=== PATIENT | male | born 1960 | race Hispanic/Latino ===

== ENCOUNTER 2019-09-12 11:10 | Emergency (ER) | payer BC ==
[2019-09-12 11:37] VITALS: BP 138/84
--- NOTE | 2019-09-12 11:39 | Event Note ---
ED Screening Note Date of service: 09/12/19 Time: 11:35 ED Screening Note: This is a 59 y.o. M. that presents to the ER with abdominal pain for 4 days. History of bilateral inguinal hernia repair 2009. Reports pain in left groin radiating to back. This initial assessment/diagnostic orders/clinical plan/treatment(s) is/are subject to change based on patients health status, clinical progression and re- assessment by fellow clinical providers in the ED. Further treatment and workup at subsequent clinical providers discretion. Patient/guardian urged not to elope from the ED as their condition may be serious if not clinically assessed and managed. Initial orders include: Labs and CT of abdomen
--- NOTE | 2019-09-12 12:28 | Emergency Department Report ---
ED Abdominal Pain HPI - General Chief Complaint: Abdominal Pain Stated Complaint: SEVERE PAIN Time Seen by Provider: 09/12/19 11:35 Source: patient Mode of arrival: Ambulatory Limitations: No Limitations - History of Present Illness Initial Comments: This is a 59-year-old male that presents to the ER with abdominal pain for 4 days. History of bilateral inguinal hernia repair 2009. Reports pain in left lower quadrant radiating to back. Nights recent injury, urinary frequency, urgency, dysuria, fever, chills, nausea, vomiting, or diarrhea. MD Complaint: abdominal pain Onset/Timin -: days(s) Location: LLQ Radiation: L flank Migration to: no migration Severity: moderate Severity scale (0 -10): 4 Quality: aching Consistency: intermittent Improves With: nothing Worsens With: nothing Associated Symptoms: denies other symptoms - Related Data Allergies Allergy/AdvReac Type Severity Reaction Status Date / Time acetaminophen Allergy Nausea Verified 09/12/19 11:12 [From Tylenol-Codeine #3] bee venom protein (honey bee) Allergy Swelling Verified 09/12/19 11:12 codeine Allergy Nausea Verified 09/12/19 11:12 [From Tylenol-Codeine #3] ED Review of Systems ROS: Stated complaint: SEVERE PAIN Other details as noted in HPI Constitutional: denies: chills, fever Respiratory: denies: cough, shortness of breath, wheezing Cardiovascular: denies: chest pain, palpitations Gastrointestinal: abdominal pain (left lower quadrant ). denies: nausea, diarrhea Genitourinary: denies: urgency, dysuria Musculoskeletal: back pain. denies: joint swelling, arthralgia Skin: denies: rash, lesions Neurological: denies: headache, weakness, paresthesias Psychiatric: denies: anxiety, depression ED Past Medical Hx - Past Medical History Previous Medical History?: Yes Additional medical history: hernia. "hard of hearing". enlarged heart - Surgical History Past Surgical History?: Yes Additional Surgical History: hernia surgery - Social History Smoking Status: Current Every Day Smoker Substance Use Type: None ED Physical Exam - General Limitations: No Limitations General appearance: alert, in no apparent distress - Respiratory Respiratory exam: Present: normal lung sounds bilaterally. Absent: respiratory distress - Cardiovascular Cardiovascular Exam: Present: regular rate, normal rhythm. Absent: systolic mu rmur, diastolic murmur, rubs, gallop - GI/Abdominal GI/Abdominal exam: Present: soft, tenderness (left lower quadrant), normal bowel sounds. Absent: distended, guarding, rebound, rigid, organomegaly, pulsatile mass, hernia - Back Exam Back exam: Present: normal inspection, full ROM. Absent: CVA tenderness (R), CVA tenderness (L), rash noted - Neurological Exam Neurological exam: Present: alert, oriented X3, normal gait - Psychiatric Psychiatric exam: Present: normal affect, normal mood - Skin Skin exam: Present: warm, dry, intact, normal color. Absent: rash ED Course Vital Signs 09/12/19 11:35 Temperature 97.7 F Pulse Rate 92 H Respiratory 20 Rate Blood Pressure 138/84 O2 Sat by Pulse 96 Oximetry ED Medical Decision Making - Lab Data Result diagrams: 09/12/19 12:50 09/12/19 12:50 Lab Results 09/12/19 09/12/19 Range/Units 12:50 12:50 WBC 10.6 (4.5-11.0) K/mm3 RBC 5.62 H (3.65-5.03) M/mm3 Hgb 16.5 H (11.8-15.2) gm/dl Hct 49.6 H (35.5-45.6) % MCV 88 (84-94) fl MCH 29 (28-32) pg MCHC 33 (32-34) % RDW 14.1 (13.2-15.2) % Plt Count 301 (140-440) K/mm3 Lymph % (Auto) 15.9 (13.4-35.0) % Loving % (Auto) 8.7 H (0.0-7.3) % Eos % (Auto) 1.1 (0.0-4.3) % Baso % (Auto) 0.9 (0.0-1.8) % Lymph # 1.7 (1.2-5.4) K/mm3 Loving # 0.9 H (0.0-0.8) K/mm3 Eos # 0.1 (0.0-0.4) K/mm3 Baso # 0.1 (0.0-0.1) K/mm3 Seg Neutrophils % 73.4 H (40.0-70.0) % Seg Neutrophils # 7.8 H (1.8-7.7) K/mm3 Sodium 136 L (137-145) mmol/L Potassium 4.9 (3.6-5.0) mmol/L Chloride 100.3 (98-107) mmol/L Carbon Dioxide 20 L (22-30) mmol/L Anion Gap 21 mmol/L BUN 15 (9-20) mg/dL Creatinine 0.9 (0.8-1.5) mg/dL Estimated GFR > 60 ml/min BUN/Creatinine Ratio 17 % Glucose 106 H (75-100) mg/dL Calcium 9.3 (8.4-10.2) mg/dL Total Bilirubin 0.60 (0.1-1.2) mg/dL AST 17 (5-40) units/L ALT 15 (7-56) units/L Alkaline Phosphatase 64 (35-129) units/L Total Protein 7.1 (6.3-8.2) g/dL Albumin 3.9 (3.9-5) g/dL Albumin/Globulin Ratio 1.2 % - Radiology Data Radiology results: report reviewed CT ABDOMEN AND PELVIS WITH IV CONTRAST INDICATION: abdominal pain. COMPARISON: None available. TECHNIQUE: All CT scans at this facility use dose modulation, automated exposure control, iterative reconstruction or weight based dosing, when appropriate, to reduce radiation dose to as low as reasonably achievable. FINDINGS: Lung Bases: There is a 7 mm pleural-based noncalcified nodule in the right lung base on series 2 image 41. Skeletal System: No acute abnormality. ABDOMEN: Liver: No significant abnormality. Gallbladder: No significant abnormality. Bile Ducts: No significant abnormality. Pancreas: No significant abnormality. Spleen: No significant abnormality. Adrenals: No significant abnormality. 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 No hydronephrosis or intrinsic lesions. Upper GI tract: There is partial bowel rotation with small bowel in the right and: Normal left. No bowel obstruction is seen. Lymph Nodes: No significant adenopathy. Aorta: No significant abnormality. Additional Findings: There has been prior hernia repair. PELVIS: Colon: No acute abnormality. Urinary Bladder and Distal Ureters: No significant abnormality. Appendix: No significant abnormality. Lymph Nodes: No significant adenopathy. Additional Findings: None. IMPRESSION: 1. No acute process in the abdomen or pelvis. 2. Crossed fused renal ectopia. 3. 7 mm pleural-based noncalcified nodule in the right lung base. See below for follow-up recommendations. 4. Additional, incidental findings as above. INCIDENTAL PULMONARY NODULE RECOMMENDATIONS Solid Nodule size 6-8 mm -- Single - Low Risk Patient: CT at 6-12 months, then consider CT at 18-24 months - High Risk Patient: CT at 6-12 months, then CT at 18-24 months Note These recommendations do not apply to lung cancer screening, patients with immunosuppression, or patients with known primary cancer. Note Newly detected indeterminate nodule in persons 35 years of age or older. Persons under the age of 35 should not receive follow-up unless there is a known primary cancer. Low Risk Patient -- minimal or absent history of smoking and of other known risk factors. High Risk Patient -- history of smoking or of other known risk factors. Nodule dimensions are average of long and short axes, rounded to the nearest millimeter. - Medical Decision Making This is a 59-year-old male who presents to the emergency room with left inguinal pain radiating to left flank. Vitals are stable and patient in no acute distress. Workup: CBC, BMP, and CT of abdomen and pelvis. All labs are unre markable. CT findings of 1. No acute process in the abdomen or pelvis. 2. Crossed fused renal ectopia. 3. 7 mm pleural-based noncalcified nodule in the right lung base. There is low suspicion emergent causes of abdominal pain such as, but not limited to, appendicitis, abdominal aortic aneurysm, surgical biliary disease, pancreatitis, SBO, mesenteric ischemia, serious intra-abdominal bacterial illness, genital torsion. Patient tolerating by mouth. Will give instructions to have repeat CT of abdomen in 6 months. Patient will be discharged with strict return precautions and follow up with primary MD within 12-24 hours for further evaluation. Patient understands that this still may have an early presentation of an emergent medical condition such as appendicitis that will require a recheck. Critical care attestation.: If time is entered above; I have spent that time in minutes in the direct care of this critically ill patient, excluding procedure time. ED Disposition Clinical Impression: Lung nodule Abdominal pain Qualifiers: Abdominal location: left lower quadrant Qualified Code(s): R10.32 - Left lower quadrant pain Disposition: - TO HOME OR SELFCARE Is pt being admited?: No Condition: Stable Instructions: Pulmonary Nodules (ED), Abdominal Pain (ED) Additional Instructions: There is a nodule in your right lower lobe lung that will require repeat CT imaging in 6 months. I have provided a list of primary care doctors for you to follow up with and to order repeat imaging with. Turn to the emergency room if worsening symptoms. Referrals: SHIELA DEL TORO MD [Staff Physician] - 3-5 Days [facility] [Outside] - 3-5 Days [facility] [Outside] - 3-5 Days [facility] [Outside] - 3-5 Days Forms: Work/School Release Form(ED) Time of Disposition: 16:17
[2019-09-12 13:06] LABS: Basophils # (Auto) 0.1 K/mm3 (0.0-0.1); Basophils % (Auto) 0.9 % (0.0-1.8); Eosinophils # (Auto) 0.1 K/mm3 (0.0-0.4); Eosinophils % (Auto) 1.1 % (0.0-4.3); Hematocrit 49.6 % (35.5-45.6); Hemoglobin 16.5 gm/dl (11.8-15.2); Lymphocytes # (Auto) 1.7 K/mm3 (1.2-5.4); Lymphocytes % (Auto) 15.9 % (13.4-35.0); Mean Corpuscular HGB Conc 33 % (32-34); Mean Corpuscular Volume 88 fl (84-94); Monocytes # (Auto) 0.9 K/mm3 (0.0-0.8); Monocytes % (Auto) 8.7 % (0.0-7.3); Platelet Count 301 K/mm3 (140-440); Red Blood Count 5.62 M/mm3 (3.65-5.03); Red Cell Distribution Width 14.1 % (13.2-15.2)
[2019-09-12 13:31] LABS: Alanine Aminotransferase 15 units/L (7-56); Albumin 3.9 g/dL (3.9-5); BUN/Creatinine Ratio 17; Blood Urea Nitrogen 15 mg/dL (9-20); Calcium 9.3 mg/dL (8.4-10.2); Hemolysis Index 7
--- NOTE | 2019-09-12 15:58 | Cat Scan Report ---
CT ABDOMEN AND PELVIS WITH IV CONTRAST INDICATION: abdominal pain. COMPARISON: None available. TECHNIQUE: All CT scans at this facility use dose modulation, automated exposure control, iterative reconstructi on or weight based dosing, when appropriate, to reduce radiation dose to as low as reasonably achieva ble. FINDINGS: Lung Bases: There is a 7 mm pleural-based noncalcified nodule in the right lung base on series 2 imag e 41. Skeletal System: No acute abnormality. ABDOMEN: Liver: No significant abnormality. Gallbladder: No significant abnormality. Bile Ducts: No significant abnormality. Pancreas: No significant abnormality. Spleen: No significant abnormality. Adrenals: No significant abnormality. 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 No hyd ronephrosis or intrinsic lesions. Upper GI tract: There is partial bowel rotation with small bowel in the right and: Normal left. No martina wel obstruction is seen. Lymph Nodes: No significant adenopathy. Aorta: No significant abnormality. Additional Findings: There has been prior hernia repair. PELVIS: Colon: No acute abnormality. Urinary Bladder and Distal Ureters: No significant abnormality. Appendix: No significant abnormality. Lymph Nodes: No significant adenopathy. Additional Findings: None. IMPRESSION: 1. No acute process in the abdomen or pelvis. 2. Crossed fused renal ectopia. 3. 7 mm pleural-based noncalcified nodule in the right lung base. See below for follow-up recommendat ions. 4. Additional, incidental findings as above. INCIDENTAL PULMONARY NODULE RECOMMENDATIONS Solid Nodule size 6-8 mm -- Single - Low Risk Patient: CT at 6-12 months, then consider CT at 18-24 months - High Risk Patient: CT at 6-12 months, then CT at 18-24 months Note These recommendations do not apply to lung cancer screening, patients with immunosuppression, o r patients with known primary cancer. Note Newly detected indeterminate nodule in persons 35 years of age or older. Persons under the age of 35 should not receive follow-up unless there is a known primary cancer. Low Risk Patient -- minimal or absent history of smoking and of other known risk factors. High Risk Patient -- history of smoking or of other known risk factors. Nodule dimensions are average of long and short axes, rounded to the nearest millimeter. Based on 2017 Fleischner Society Guidelines found in Radiology 2017 284:228-243. [email or web address] [email or web address] Signer Name: Todd Zimmerman MD Signed: 09/12/2019 3:53 PM Workstation Name: [id number]
== END 2019-09-12 16:39 | disposition home or self-care (01) ==
LOC: ED 11:10
DX: R10.32 Left lower quadrant pain (principal); R91.1 Solitary pulmonary nodule; F17.200 Nicotine dependence, unspecified, uncomplicated; Z91.030 Bee allergy status; Z88.8 Allergy status to other drugs, medicaments and biological substances
CPT/HCPCS: 36415; 74177; 80053; 85025; 99284; Q9967

== ENCOUNTER 2020-05-15 13:17 | Outpatient (CLI) | payer BC ==
--- NOTE | 2020-05-15 14:46 | Cat Scan Report ---
CT CHEST WITHOUT CONTRAST INDICATION / CLINICAL INFORMATION: MAIN. Solitary pulmonary nodule follow-up TECHNIQUE: Axial CT images were obtained through the chest without contrast. All CT scans at this location are p erformed using CT dose reduction for ALARA by means of automated exposure control. COMPARISON: 03/25/2020 FINDINGS: HEART: No significant abnormality. Mild coronary artery calcification THORACIC AORTA: No significant abnormality. Mild atherosclerotic calcification MEDIASTINUM and MOY: No significant abnormality. LUNGS: The 7 mm nodule within the right lower lobe is unchanged from 03/25/2020. No acute or new find ing is identified. Persistent scarring identified within both lungs, unchanged. PLEURA: No significant pleural effusion. No pneumothorax. ADDITIONAL FINDINGS: None. UPPER ABDOMEN: No significant abnormality. SKELETAL SYSTEM: No significant abnormality. IMPRESSION: No change in the size or appearance of the 7 mm noncalcified pulmonary nodule within the right lower lobe, as above. One-year CT follow-up is suggested to ensure stability. Signer Name: Jose Antonio Be MD Signed: 05/15/2020 2:42 PM Workstation Name: [id number]
== END 2020-05-15 13:18 | disposition home or self-care (01) ==
LOC: CT 13:17
PROVIDERS: ATTEND Specialist
DX: R91.1 Solitary pulmonary nodule (principal); I70.0 Atherosclerosis of aorta; J98.4 Other disorders of lung
CPT/HCPCS: 71250

== ENCOUNTER 2020-09-30 13:17 | Outpatient (CLI) | payer BC ==
--- NOTE | 2020-09-30 14:29 | XRay Report ---
LEFT WRIST 3 VIEWS INDICATION / CLINICAL INFORMATION: LEFT WRIST PAIN. COMPARISON: None available. FINDINGS: There is an impacted fracture of the distal radius with an ulnar styloid process fracture. Signer Name: Cj Pina MD FACDeisi Signed: 09/30/2020 2:25 PM Workstation Name: [id number]
== END 2020-09-30 13:18 | disposition home or self-care (01) ==
LOC: XRAY 13:17
PROVIDERS: ATTEND Orthopaedic Surgery
DX: S52.512A Displaced fracture of left radial styloid process, initial encounter for closed fracture (principal); X58.XXXA Exposure to other specified factors, initial encounter; Y93.89 Activity, other specified; Y92.89 Other specified places as the place of occurrence of the external cause; Y99.8 Other external cause status

== ENCOUNTER 2021-03-05 13:13 | Outpatient (CLI) | payer BC ==
--- NOTE | 2021-03-05 14:13 | XRay Report ---
Left wrist 4 views INDICATION: Fracture FINDINGS: There is a fracture the distal radius in physeal region with mild dorsal angulation. There is extension into the distal radioulnar joint. Ulnar styloid process fracture is also seen. Diffuse s oft tissue swelling is seen. Signer Name: Bert Burks MD Signed: 03/05/2021 2:08 PM Workstation Name: [id number]
== END 2021-03-05 13:14 | disposition home or self-care (01) ==
LOC: XRAY 13:13
PROVIDERS: ATTEND Orthopaedic Surgery
DX: S52.612A Displaced fracture of left ulna styloid process, initial encounter for closed fracture (principal); S62.92XA Unspecified fracture of left hand, initial encounter for closed fracture; M79.89 Other specified soft tissue disorders; X58.XXXA Exposure to other specified factors, initial encounter; Y93.89 Activity, other specified; Y92.89 Other specified places as the place of occurrence of the external cause; Y99.8 Other external cause status

== ENCOUNTER 2021-09-23 15:17 | Outpatient (CLI) | payer BC ==
[2021-09-23 15:53] LABS: Basophils # (Auto) 0.1 K/mm3 (0.0-0.1); Basophils % (Auto) 1.3 % (0.0-1.8); Eosinophils # (Auto) 0.1 K/mm3 (0.0-0.4); Hematocrit 51.4 % (35.5-45.6); Hemoglobin 16.8 gm/dl (11.8-15.2); Lymphocytes # (Auto) 1.6 K/mm3 (1.2-5.4); Lymphocytes % (Auto) 17.3 % (13.4-35.0); Mean Corpuscular HGB Conc 33 % (32-34); Mean Corpuscular Volume 91 fl (84-94); Monocytes # (Auto) 0.9 K/mm3 (0.0-0.8); Monocytes % (Auto) 9.2 % (0.0-7.3); Platelet Count 297 K/mm3 (140-440); Red Blood Count 5.66 M/mm3 (3.65-5.03); Red Cell Distribution Width 13.7 % (13.2-15.2)
== END 2021-09-23 15:18 | disposition home or self-care (01) ==
LOC: LAB 15:17
DX: R10.9 Unspecified abdominal pain (principal)
CPT/HCPCS: 36415; 85025

== ENCOUNTER 2021-09-25 11:03 | Outpatient (CLI) | payer BC ==
--- NOTE | 2021-09-25 13:58 | Cat Scan Report ---
CT ABDOMEN AND PELVIS WITHOUT CONTRAST HISTORY: hematuria COMPARISON: CT abdomen pelvis with contrast 09/12/2019 TECHNIQUE: Axial CT images were obtained through the abdomen and pelvis without IV contrast. Sagittal and coronal reformatted images. All CT scans at this location are performed using CT dose reduction for ALARA by means of automated exposure control. FINDINGS: CT ABDOMEN: Lung Bases: Clear. Stable 7 mm subpleural nodule at the right lung base. Minor subpleural scarring at the left lung base is unchanged. Heart size is normal. Liver: No significant abnormality. Biliary: No significant abnormality. Spleen: No significant abnormality. Unenlarged. Pancreas: No significant abnormality. Adrenals: No significant abnormality. 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 Both kidneys are located in the hartmann perior pelvis near midline. There is no evidence for nephrolithiasis, hydronephrosis or obvious focal renal lesion. The ureters are normal caliber. Lymphatics: No lymphadenopathy. Vasculature: No significant abnormality. Bowel/Peritoneum: No significant abnormality. No free air. No free fluid. Normal appendix. CT PELVIS: : The bladder and prostate gland are unremarkable. Osseous Structures: No significant abnormality. Stable mild lumbar spondylosis. Additional Findings: Bilateral inguinal hernia repairs appear unchanged with no evidence for recurren t hernia. IMPRESSION: No acute abnormality is appreciated. No clear explanation for hematuria. 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 Signer Name: Kuldip Chan Jr, MD Signed: 09/25/2021 1:53 PM Workstation Name: [id number]
== END 2021-09-25 11:04 | disposition home or self-care (01) ==
LOC: CT 11:03
DX: K40.90 Unilateral inguinal hernia, without obstruction or gangrene, not specified as recurrent (principal); R31.9 Hematuria, unspecified; Q63.2 Ectopic kidney; M47.816 Spondylosis without myelopathy or radiculopathy, lumbar region
CPT/HCPCS: 74176